=== PATIENT | female | born 1995 | race Caucasian/White ===

== ENCOUNTER 2018-07-23 14:14 | Observation (INO) | payer MEDICAID, OTHER ==
[~2018-07-23] VITALS: Ht 149.9 cm; Wt 58.0 kg
[2018-07-23] MEDS ORDERED: SODIUM CHLORIDE 0.9% 1,000ML IVBOLUS ONE ×2 (14:30→15:30)
[2018-07-23] MEDS ORDERED: CHARCOAL/AQUEOUS 25 GM/120 ML PO ONE (14:30)
[2018-07-23] MEDS ORDERED: CHARCOAL/SORBITOL 50 GM/240 ML ONE (14:42)
[2018-07-23 14:47] LABS: BASOPHILS # (AUTO) 0.05 x10^3/uL (0-0.1); BASOPHILS % (AUTO) 0 % (0-1); EOSINOPHILS # (AUTO) 0.03 x10^3/uL (0-0.4); EOSINOPHILS % (AUTO) 0 % (1-7); LYMPHOCYTES # (AUTO) 1.27 x10^3/uL (1-3.4); LYMPHOCYTES % (AUTO) 11 % (22-44); MD NO; MEAN CORPUSCULAR HEMOGLOBIN 30.3 pg (27.0-34.8); MEAN CORPUSCULAR HGB CONC 33.5 g/dL (32.4-35.8); MEAN CORPUSCULAR VOLUME 90.6 fL (80-100); MEAN PLATELET VOLUME 7.3 fL (7.4-10.4); MONOCYTES # (AUTO) 0.64 x10^3/uL (0.2-0.8); MONOCYTES % (AUTO) 6 % (2-9); NEUTROPHILS # (AUTO) 9.33 x10^3/uL (1.8-6.8); NEUTROPHILS % (AUTO) 82 % (42-75); PLATELET COUNT 331 x10^3/uL (130-400); RED BLOOD COUNT 4.32 x10^6/uL (3.82-5.3); RED CELL DISTRIBUTION WIDTH 13.9 % (9.6-15.2)
[2018-07-23 14:59] LABS: ACETAMINOPHEN 92 mcg/mL (10-30); ALANINE AMINOTRANSFERASE 20 U/L (12-78); ALBUMIN 3.8 g/dL (3.4-5.0); ANION GAP 11 mmol/L (5-15); CALCIUM 8.4 mg/dL (8.5-10.1); CHLORIDE 110 mmol/L (98-107)
[2018-07-23 15:03] LABS: AMPHETAMINE SCREEN, URINE Negative (Negative); BARBITURATE SCREEN, URINE Negative (Negative); BENZODIAZEPINE SCREEN, URINE Negative (Negative); CANNABINOID SCREEN, URINE Negative (Negative); COCAINE SCREEN, URINE Negative (Negative); METHADONE SCREEN, URINE Negative (Negative); OPIATE SCREEN, URINE Negative (Negative)
[2018-07-23 15:04] LABS: ALKALINE PHOSPHATASE 63 U/L (45-117); BILIRUBIN,TOTAL 0.5 mg/dL (0.2-1.0); SALICYLATE LEVEL < 1.7 mg/dL (2.8-20.0); TOTAL PROTEIN 7.8 g/dL (6.4-8.2)
[2018-07-23] MEDS ORDERED: SODIUM CHLORIDE FLUSH 10ML SYR IVF ONE (15:30)
[2018-07-23] MEDS ORDERED: ONDANSETRON ODT 4 MG PO PRN (20:00)
[2018-07-23 20:30] VITALS: BP 101/72
[2018-07-24 05:26] LABS: BASOPHILS # (AUTO) 0.04 x10^3/uL (0-0.1); BASOPHILS % (AUTO) 0 % (0-1); EOSINOPHILS # (AUTO) 0.12 x10^3/uL (0-0.4); EOSINOPHILS % (AUTO) 1 % (1-7); LYMPHOCYTES # (AUTO) 2.54 x10^3/uL (1-3.4); LYMPHOCYTES % (AUTO) 27 % (22-44); MD NO; MEAN CORPUSCULAR HEMOGLOBIN 30.7 pg (27.0-34.8); MEAN CORPUSCULAR HGB CONC 33.3 g/dL (32.4-35.8); MEAN CORPUSCULAR VOLUME 92.2 fL (80-100); MEAN PLATELET VOLUME 7.7 fL (7.4-10.4); MONOCYTES # (AUTO) 0.69 x10^3/uL (0.2-0.8); MONOCYTES % (AUTO) 7 % (2-9); NEUTROPHILS # (AUTO) 5.88 x10^3/uL (1.8-6.8); NEUTROPHILS % (AUTO) 63 % (42-75); PLATELET COUNT 251 x10^3/uL (130-400); RED BLOOD COUNT 3.81 x10^6/uL (3.82-5.3)
[2018-07-24 05:27] LABS: ALBUMIN 3.1 g/dL (3.4-5.0); ANION GAP 7 mmol/L (5-15); CHLORIDE 114 mmol/L (98-107)
[2018-07-24 05:29] LABS: ALANINE AMINOTRANSFERASE 18 U/L (12-78); ALKALINE PHOSPHATASE 54 U/L (45-117); BILIRUBIN,TOTAL 0.3 mg/dL (0.2-1.0); CREATININE 0.65 mg/dL (0.55-1.02); TOTAL PROTEIN 6.2 g/dL (6.4-8.2)
[2018-07-24 09:05] VITALS: BP 97/60
== END 2018-07-24 16:19 ==
LOC: ED 15:49 → EDIP 18:41 → 2N 20:23
PROVIDERS: ADMIT Internal Medicine; ATTEND Internal Medicine
DX: T14.91XA Suicide attempt, initial encounter (principal); T39.1X2A Poisoning by 4-Aminophenol derivatives, intentional self-harm, initial encounter; F33.2 Major depressive disorder, recurrent severe without psychotic features; D72.829 Elevated white blood cell count, unspecified; Y92.89 Other specified places as the place of occurrence of the external cause; Y93.89 Activity, other specified; Y99.8 Other external cause status; Z83.3 Family history of diabetes mellitus; Z91.5 Personal history of self-harm
CPT/HCPCS: 36415; 80053; 80307; 80329; 84703; 85025; 93005; 99285; G0378; J7030; G0480